=== PATIENT | female | born 1940 | race Caucasian/White ===

== ENCOUNTER → 2016-04-02 | Day surgery (SDC) | payer OTHER ==
[~2016-04-02] MED LIST: ABILIFY10 MG PO; ANDROGEL5 GM TD; AZO CRANBERRY1 EACH PO; CITALOPRAM HBR40 MG PO; CYSTEX PLUS TA1 EACH PO; EYE VITAMIN-MI1 EACH PO; HIGH POTENCY B1 TAB PO; HYDROCODON-ACE1 EAC4 PO; KLONOPIN1 MG PO; MORPHINE SULFA100 MG PO; MORPHINE SULFAT60 M2 PO; NORCO1 TAB 10/3 PO; PREMARIN TOP; PYRIDIUM PO; RED YEAST RICE600 M1 PO; RED YEAST RICE600 MG PO; TIROSINT25 MCG PO; TRAZODONE PO; VITAMIN D-32000 UNI1 PO; VITAMIN D31000 UNIT PO; ZOLOFT PO
--- NOTE | ~2016-04-02 | OR ---
Unit #: [id number] #: [id number] Patient: SAUMYA BAR [id number] [address] [place], [place] [address] [id number] O MR#: [id number] NAME: SAUMYA BAR ROOM: Date of Procedure: 04/02/2016 Admission Date: 04/02/2016 Surgeon: Pop Mosqueda M.D. : 1940 Attending Physician: Pop Mosqueda M.D. Primary Care Physician: Yonathan Nelson M.D. OPERATIVE REPORT PREOPERATIVE DIAGNOSES Back pain, radiculopathy, spinal stenosis, degenerative lumbar disk disease. POSTOPERATIVE DIAGNOSES Back pain, radiculopathy, spinal stenosis, degenerative lumbar disk disease. PROCEDURE PERFORMED Lumbar epidural steroid injection with intravenous sedation and fluoroscopic guidance for needle localization. INDICATIONS FOR PROCEDURE The patient is a 75-year-old female with return of back and especially bilateral lower extremity pain due to known degenerative disk disease with spinal stenosis, most significant at L4-5 and L3-4. She was treated medically. She failed to settle with further conservative treatment. She had done fairly well about 5 years ago with epidural steroids for similar symptoms. The plan is to trial a repeat epidural steroid injection today. DESCRIPTION OF PROCEDURE The patient was placed in a seated position. Standard monitors were applied. 2 mg of Versed were given for sedation and anxiolysis, which were adequate. Vital signs remained stable. Sterile prep and drape then of the lumbar area was performed. The skin at the L4 level was localized with 1% lidocaine. An 18-gauge Hustead needle was then advanced via loss of resistance technique and fluoroscopic guidance in toward the epidural space. It was technically difficult due to the patient's degenerative change, has localized discomfort, but no complaints of paresthesia. After confirming proper positioning with fluoroscopy and radiographic contrast, 80 mg of Depo-Medrol and 4 mL of 0.125% bupivacaine were deposited. The patient tolerated the procedure otherwise well and was discharged to recovery room in stable condition. Dictated by... Pop Mosqueda M.D. LHP/sagel Unit #: [id number] #: [id number] Patient: SAUMYA BAR TD: 04/03/2016 00:25 JOB #: [id number] OPERATIVE REPORT X Pop Mosqueda MD X PROCEDURE OPERATIVE NOTE
== END | disposition home or self-care (01) ==
LOC: CCSC 10:27
DX: M51.16 Intervertebral disc disorders with radiculopathy, lumbar region (principal); M48.06 Spinal stenosis, lumbar region; I10 Essential (primary) hypertension; J44.9 Chronic obstructive pulmonary disease, unspecified; M19.90 Unspecified osteoarthritis, unspecified site
CPT/HCPCS: J1040; J2250

== ENCOUNTER → 2016-07-07 | Day surgery (SDC) | payer OTHER ==
--- NOTE | ~2016-07-07 | OR ---
Unit #: [id number] #: [id number] Patient: SAUMYA BAR [id number] [address] [place], [place] [address] [id number] O MR#: [id number] NAME: SAUMYA BAR ROOM: Date of Procedure: 07/07/2016 Admission Date: 07/07/2016 Surgeon: Pop Mosqueda M.D. : 1940 Attending Physician: Pop Mosqueda M.D. Primary Care Physician: Yonathan Nelson M.D. OPERATIVE REPORT PREOPERATIVE DIAGNOSES Back pain, radiculopathy, degenerative disk disease, spinal stenosis. POSTOPERATIVE DIAGNOSES Back pain, radiculopathy, degenerative disk disease, spinal stenosis. PROCEDURES PERFORMED Lumbar epidural steroid injection with intravenous sedation and fluoroscopic guidance for needle localization. INDICATIONS FOR PROCEDURE The patient is a 75-year-old female with worsening back and bilateral lower extremity pain. She has multilevel multifactorial severe degenerative disk and spine disease. She is not a surgical candidate. She treated medically with p.r.n. epidural steroid injections. Last injection was done about a bit over 3 months ago. She got a 40% to 50% settling of her leg greater than back pain. It has begun to return somewhat. In the past, she had done very well with a series of injections. Insurance now allowing single injection at this point on a p.r.n. basis as long as there is improvement. We are going to proceed with a repeat epidural steroid injection today based on history, pathology, symptomatology, and treatment options. DESCRIPTION OF PROCEDURE The patient was placed in a seated position. Standard monitors were applied. Sterile prep and drape of the lumbar area was performed. The skin at the right of midline at the L3-L4 level was localized with 1% lidocaine. An 18-gauge Chartbeat needle was advanced via loss of resistance technique and fluoroscopic guidance in toward the epidural space. After confirming proper positioning with fluoroscopy and radiographic contrast, 80 mg of Depo-Medrol and 6 mL of 0.5% lidocaine were deposited. The patient tolerated the procedure otherwise well and was discharged to recovery room in stable condition. Dictated by... Pop Mosqueda M.D. DELGADO/husam TD: 07/07/2016 22:43 Unit #: [id number] #: [id number] Patient: SAUMYA BAR JOB #: [id number] OPERATIVE REPORT Page 1 of 1 X Pop Mosqueda MD X PROCEDURE OPERATIVE NOTE
== END | disposition home or self-care (01) ==
LOC: CCSC 09:43
DX: M51.16 Intervertebral disc disorders with radiculopathy, lumbar region (principal); M48.06 Spinal stenosis, lumbar region; I10 Essential (primary) hypertension; J44.9 Chronic obstructive pulmonary disease, unspecified
CPT/HCPCS: J1040; J2250

== ENCOUNTER 2016-09-20 09:35 | Emergency (ER) | payer OTHER ==
[~2016-09-20] VITALS: Ht 157.5 cm; Wt 70.8 kg
--- NOTE | ~2016-09-20 | CR243 ---
[facility] A Service of [facility] & [facility] RADIOLOGY TEXT RESULTS PATIENT: SAUMYA BAR LOCATION: [facility] : 42 UNIT #: [id number] AGE: [address]: Rancho Jett MD SEX: F ORDER DR: [id number] [facility] [address] [place], [place] [address] [id number] E MR#: [id number] Acc #: [id number] NAME: SAUMYA BAR : 1940 SEX: F STUDY DATE/TIME: 09/20/2016 11:12 UNIT: [facility] ROOM: STUDY DESCRIPTION: CR Thoracic Spine 3 Views Attending Physician: Rancho Jett M.D. Ordering Physician: Rancho Jett M.D. Primary Care Physician: Yonathan Nelson M.D. MEDICAL IMAGING REPORT This report is preliminary unless electronic signature is present EXAM Thoracic spine series. HISTORY Patient fell 3 days ago and has mid back pain right-sided. COMMENT AP, lateral and swimmer's views of the thoracic spine reviewed. There is mild exaggeration of thoracic kyphosis. No acute fracture or traumatic malalignment is suspected. There is multiple-level endplate spondylosis and mild multiple-level chronic anterior wedging. There is also some dextroconvex lumbar scoliosis partly redemonstrated. There is evidence for old granulomatous disease. IMPRESSION 1. No acute fracture or traumatic malalignment suspected in the thoracic spine. 2. There is exaggerated thoracic kyphosis with mild multiple-level chronic anterior wedging and endplate spondylosis noted. Dictated by... Alexandra Delarosa M.D. THIS IS AN ELECTRONICALLY VERIFIED REPORT Alexandra Delarosa M.D. at 09/21/2016 4:52 PM SAC/psc TD: 09/21/2016 01:34 JOB #: [id number] MEDICAL IMAGING REPORT Page 1 of 1 COPY
--- NOTE | ~2016-09-20 | CR211 ---
[facility] A Service of [facility] & [facility] RADIOLOGY TEXT RESULTS PATIENT: SAUMYA BAR LOCATION: [facility] : 42 UNIT #: [id number] AGE: [address]: Rancho Jett MD SEX: F ORDER DR: [id number] [facility] [address] [place], [place] [address] [id number] E MR#: [id number] Acc #: [id number] NAME: SAUMYA BAR : 1940 SEX: F STUDY DATE/TIME: 09/20/2016 11:06 UNIT: [facility] ROOM: STUDY DESCRIPTION: CR Ribs Uni 2 View W PA Ch Rt Attending Physician: Rancho Jett M.D. Ordering Physician: Rancho Jett M.D. Primary Care Physician: Yonathan Nelson M.D. MEDICAL IMAGING REPORT This report is preliminary unless electronic signature is present EXAM Right ribs and a chest x-ray HISTORY Pain after a fall, right posterior ribs, mid back pain, right side pain, fell 3 days ago. History of shortness of breath and smoking. COMMENTS Frontal view of the chest, 3 views of the right ribs submitted for review. Comparison chest x-ray is from an acute abdomen series 2013. There is mild cardiac silhouette enlargement which has developed in the interval since that study and there is also mild vascular congestion and interstitial edema, new from prior. Please correlate for mild congestive failure. There is minimal atelectasis at the right base. There is evidence for old granulomatous disease. No pneumothorax. There is a density seen retrocardiac location which could be hiatal hernia or could be abdominal aortic aneurysm. It is present on the prior abdominal series and is not changed. On an MRI of the lumbar spine localizer from 2016, I believe it is a hiatal hernia. Correlation with a PA/lateral view of the chest recommended to confirm. Assessment right ribs shows no displaced right rib fracture. IMPRESSION 1. No displaced right rib fracture. 2. Interval development of mild cardiac silhouette enlargement and vascular congestion, concerning for mild congestive failure. 3. Findings are most likely consistent with a iadvcwfh-ca-akats hiatal hernia. Correlation with a PA/lateral chest x-ray recommended to confirm. No pneumothorax. No pleural effusion. [facility]. [facility] A Service of [facility] RADIOLOGY TEXT RESULTS PATIENT: SAUMYA BAR LOCATION: [facility] : 42 UNIT #: [id number] AGE: [address]: Rancho Jett MD SEX: F ORDER DR: Dictated by... Alexandra Delarosa M.D. THIS IS AN ELECTRONICALLY VERIFIED REPORT Alexandra Delarosa M.D. at 09/21/2016 4:52 PM IESHA/jesus alberto TD: 09/21/2016 01:26 JOB #: [id number] MEDICAL IMAGING REPORT Page 1 of 1 COPY
== END 2016-09-20 12:38 | disposition home or self-care (01) ==
LOC: CED 09:35
DX: S20.221A Contusion of right back wall of thorax, initial encounter (principal); F17.200 Nicotine dependence, unspecified, uncomplicated; W18.30XA Fall on same level, unspecified, initial encounter
CPT/HCPCS: 71101; 72072; 96372; 99283; J2270